=== PATIENT | female | born 1995 | race Caucasian/White ===

== ENCOUNTER 2017-04-29 01:10 | Inpatient (IN) | payer OTHER, SELFPAY ==
[~2017-04-29] VITALS: Ht 160 cm; Wt 58.0 kg
[2017-04-29] MEDS ORDERED: VANCOMYCIN HCL 500 MG in D5W MINI-BAG PLUS 100 ML IV ONE (01:45)
[2017-04-29] MEDS ORDERED: LR 1,000 ML IV SCH (01:45)
[2017-04-29] MEDS ORDERED: LACTATED RINGER'S 1000 ML IV STA (01:45)
[2017-04-29] MEDS ORDERED: VANCOMYCIN HCL 1,000 MG, VIAL MATE ADAPTER 1 EACH in D5W 250 ML IV SCH (02:00)
[2017-04-29] MEDS ORDERED: FENTANYL 2MCG/ML ROPIVACAINE 0.2% IN 0.9% NACL 200ML IVBAG As Ordered ONE (02:07)
[2017-04-29] MEDS ORDERED: D5W 250ML BAG As Ordered ONE (02:08)
[2017-04-29 02:16] LABS: BASO # 0.1 10^3/uL (0.0-0.2); BASO % 0.4 % (0.0-1.0); EOS # 0.1 10^3/uL (0.0-0.50); EOS % 0.4 % (0.0-3.0); IMMATURE GRANULOCYTE % 1.2 % (0-0); LYMPH # 1.7 10^3/uL (1.5-6.5); LYMPH % 12.9 % (24.0-44.0); MEAN CORPUSCULAR HEMOGLOBIN 26.6 pg (27.0-33.0); MEAN CORPUSCULAR HGB CONC 31.8 g/dl (32.0-36.5); MEAN CORPUSCULAR VOLUME 83.5 fl (80.0-96.0); MONO # 0.8 10^3/uL (0.0-0.8); MONO % 6.6 % (0.0-5.0); NEUTROPHILS # 10.1 10^3/uL (1.8-7.7); NEUTROPHILS % 78.5 % (36.0-66.0); PLATELET COUNT, AUTOMATED 277 10^3/uL (150-450); RED CELL DISTRIBUTION WIDTH 14.9 % (11.5-14.5); WHITE BLOOD COUNT 12.8 10^3/uL (4.0-10.0)
[2017-04-29] MEDS ORDERED: OXYTOCIN 30 UNITS IN 0.9% NaCl 500ML IV BAG (J2590) As Ordered ONE (02:40)
[2017-04-29 03:01] LABS: CORD GAS ABE A -1.2; CORD GAS ABE V -1.7; CORD GAS HCO3 A 20.5 MEQ/L; CORD GAS HCO3 V 20.5 MEQ/L; CORD GAS O2 SAT A 84.7 %; CORD GAS O2 SAT V 73.2 %; CORD GAS PCO2 A 26.6 mmHg; CORD GAS PCO2 V 27.6 mmHg; CORD GAS PH A 7.505 UNITS; CORD GAS PH V 7.488 UNITS; CORD GAS PO2 A 38.2 mmHg; CORD GAS PO2 V 29.2 mmHg; CORD GAS SBC A 23.2 MEQ/L; CORD GAS SBC V 22.6 MEQ/L; CORD GAS TCO2 A 21.3 MEQ/L; CORD GAS TCO2 V 21.3 MEQ/L
[2017-04-29 03:05] VITALS: BP 110/73
[2017-04-29] MEDS ORDERED: OXYTOCIN DRIP 30 UNITS in APPROPRIATE DILUENT 1 EA IV SCH (03:05)
[2017-04-29] MEDS ORDERED: METHYLERGONOVINE MALEATE 0.2 MG TAB PO PRN (03:15)
[2017-04-29] MEDS ORDERED: DIBUCAINE 1% OINTMENT 30GM TOP PRN (03:15)
[2017-04-29] MEDS ORDERED: DOCUSATE SODIUM 100 MG CAP PO PRN (03:15)
[2017-04-29] MEDS ORDERED: RHOGAM 300 MCG (1500 IU) INJ (J2790) IM SCH (03:15)
[2017-04-29] MEDS ORDERED: IBUPROFEN 800 MG TAB PO PRN (03:15)
[2017-04-29] MEDS ORDERED: MOM 30ML SUSPENSION UDC PO PRN (03:15)
[2017-04-29] MEDS ORDERED: ACETAMINOPHEN 500 MG TAB PO PRN (03:15)
[2017-04-29] MEDS ORDERED: OXYTOCIN INJ 10 UNITS/ML VIAL (J2590) IV ONE (03:15)
[2017-04-29] MEDS ORDERED: MEASLES,MUMPS,RUBELLA VACCINE INJ (MMR-II) (90707) SC SCH (03:15)
[2017-04-29] MEDS ORDERED: ANUSOL HC CREAM 30GM TOP PRN (03:15)
[2017-04-29 03:20] VITALS: BP 114/59
[2017-04-29 03:35] VITALS: BP 111/56
[2017-04-29 03:50] VITALS: BP 114/59
[2017-04-29 05:48] VITALS: BP 115/61
[2017-04-29] MEDS: PRENATAL VITAMINS CHEWABLE TABLET PO SCH (09:00)
--- NOTE | 2017-04-29 12:01 | HPE ---
DATE OF ADMISSION: 04/29/2017 21-year-old 2, para 1, last menstrual period (LMP) 07/24/2016, estimated date of confinement (EDC) 04/30/2017, at 39 and 6 in active labor, 7 cm, bulging membranes. Group B streptococcus (GBS) status at the present time is unknown. However, previously GBS status was negative. She is a transfer of care in at 38 weeks from of gestation . PAST HISTORY: 03/25/2015, at 40 weeks, male, 8 pounds 2 ounce, forceps delivery, decreased heart rate, cord times one, pushed for 4 hours. Labs show O+, HIV negative, hepatitis negative, RPR negative, rubella immune. Varicella unknown. Pap normal. Urine negative. Gonorrhea and chlamydia are negative. 1-hour glucose 82. GBS status in November 2016 was negative. RISK FACTOR: She has anemia, transfer of care late entry and low weight gain of 3 pounds. Presently, patient is in discomfort because of her contractions moderate intensity. Symphysis fundus height is 38, vertex 7 cm, bulging membranes, intact, -2 station. The rest of the examination is unremarkable. She is normocephalic, atraumatic. Neck full range of motions. Pupils equal and reactive to light. Distal pulses symmetric. No evidence of deep venous thrombosis (DVT), pulmonary embolism (PE) or superficial phlebitis. Lungs are clear bilaterally bases. No wheezes or rhonchi. No costovertebral angle (CVA) tenderness. Four quadrant bowel sounds are noted. No rashes, lesions or pruritus. No arthralgia, myalgia. No complaints of cough, wheezes, shortness of breath or dyspnea on exertion. No chest pain. She is not bleeding. She is neuro complete. No history of incontinence, frequency, urgency. No nausea, vomiting, diarrhea or constipation. She has no diabetic issues. Past medical history is unremarkable. Surgical history is unremarkable. She is to soldier. No domestic violence. Good support systems. No alcohol. No tobacco. No recreational drugs. In summary, we have a term gestation, late entry to care, in active labor, at 38+ weeks of gestation. Her hemoglobin is 10.0, hematocrit 31.4, platelets are 277. Urine is 1.018, pH of 8, negative. Vital signs are not available at the present time. In summary, we have a late entry to care, active labor, 7 cm, requesting an epidural. We anticipate spontaneous delivery.
[2017-04-29 18:00] VITALS: BP 103/58
[2017-04-30 06:30] VITALS: BP 106/56
[2017-04-30] MEDS: PRENATAL VITAMINS CHEWABLE TABLET PO SCH (07:46)
[2017-04-30] MEDS ORDERED: PRENTAB9 PO (08:29)
[2017-04-30] MEDS ORDERED: ACET50TA PO (08:29)
[2017-04-30] MEDS ORDERED: MOTR200T44 PO (08:29)
[2017-04-30] MEDS ORDERED: COLA100C5 PO (08:29)
[2017-04-30 08:35] LABS: MEAN CORPUSCULAR HEMOGLOBIN 26.5 pg (27.0-33.0); MEAN CORPUSCULAR HGB CONC 31.6 g/dl (32.0-36.5); PLATELET COUNT, AUTOMATED 269 10^3/uL (150-450); RED CELL DISTRIBUTION WIDTH 15.2 % (11.5-14.5); WHITE BLOOD COUNT 13.9 10^3/uL (4.0-10.0)
[2017-04-30] MEDS ORDERED: OXYTOCIN INJ 10 UNITS/ML VIAL (J2590) As Ordered ONE (09:00)
--- NOTE | 2017-04-30 18:13 | DN ---
DATE: 04/29/2017 This lady is a 2 now para 1 admitted at 38 weeks gestation in active labor. She had a spontaneous rupture of membranes. Minimal amount of fluid, clear liquor. Rapid delivery of a live female infant weighing 3170 grams, 7 pounds 0 ounces. scores of 9 and 9 at 1 and 5 minutes, respectfully. Arterial pH 7.5, base excess -1.2, venous pH 7.4, base excess -1.7. Placenta delivered spontaneously thereafter. Three-vessel cord. Membranes and tissues intact. Uterus contracted well down under Pitocin. Examination of vagina, anterior and posterior lateral zuñiga were intact. Sphincter was tight. No evidence of lacerations or tears. The patient and baby tolerating procedure well.
== END 2017-04-30 14:30 | disposition home or self-care (01) | DRG 775 ==
LOC: M LDO 01:10 → M LDI 01:42 → M OBS 05:47
PROVIDERS: ADMIT Obstetrics & Gynecology; ATTEND Obstetrics & Gynecology
PROC: 10E0XZZ Delivery of Products of Conception, External Approach (ICD-10-PCS; principal; 2017-04-29)
DX: O48.0 Post-term pregnancy (principal); Z37.0 Single live birth; Z3A.40 40 weeks gestation of pregnancy; D64.9 Anemia, unspecified; O99.02 Anemia complicating childbirth

== ENCOUNTER → 2017-05-28 | Outpatient (REF) | payer OTHER | LOC: M SFHCLERA 21:20 | DX: J02.9 Acute pharyngitis, unspecified (principal) ==

== ENCOUNTER → 2017-06-20 | Outpatient (CLI) | payer OTHER ==
[2017-06-20 15:25] LABS: BASO % 0.3 % (0.0-1.0); EOS # 0.1 10^3/uL (0.0-0.50); EOS % 1.4 % (0.0-3.0); HEMATOCRIT 39.1 % (36.0-47.0); HEMOGLOBIN 12.4 g/dl (12.0-16.0); IMMATURE GRANULOCYTE % 0.5 % (0-3.0); MEAN CORPUSCULAR HEMOGLOBIN 26.8 pg (27.0-33.0); MEAN CORPUSCULAR HGB CONC 31.7 g/dl (32.0-36.5); MEAN CORPUSCULAR VOLUME 84.6 fl (80.0-96.0); MONO # 0.6 10^3/uL (0.0-0.8); MONO % 7.2 % (0.0-5.0); NEUTROPHILS # 5.2 10^3/uL (1.8-7.7); NEUTROPHILS % 65.6 % (36.0-66.0); PLATELET COUNT, AUTOMATED 314 10^3/uL (150-450); RED BLOOD COUNT 4.62 10^6/uL (4.00-5.40); RED CELL DISTRIBUTION WIDTH 16.8 % (11.5-14.5)
[2017-06-21 10:38] LABS: CONTROL LINE MONO INT CTR LINE PRESENT; MONO SCRN NEGATIVE (NEGATIVE)
== END ==
LOC: M LAB 14:42
DX: J35.1 Hypertrophy of tonsils (principal); L04.0 Acute lymphadenitis of face, head and neck
CPT/HCPCS: 70490